=== PATIENT | male | born 1960 ===

== ENCOUNTER 2022-09-17 06:00 | Outpatient (RCR) | payer MEDICARE, MEDICAID, SELFPAY | END 2022-10-09 23:59 | disposition home or self-care (01) | LOC: SST 06:00 | PROVIDERS: Visit Provider Internal Medicine Geriatric Medicine | DX: I69.328 Other speech and language deficits following cerebral infarction (principal); I69.320 Aphasia following cerebral infarction | CPT/HCPCS: 92607; 92608 ==